=== PATIENT | female | born 1985 | race American Indian/Alaskan Native ===

== ENCOUNTER 2016-07-08 17:10 | Emergency (ER) | payer OTHER ==
[2016-07-08 20:24] VITALS: BP 131/84
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
== END 2016-07-08 21:20 | disposition home or self-care (01) ==
LOC: FB.ED 17:10
DX: F11.10 Opioid abuse, uncomplicated (principal); Z98.890 Other specified postprocedural states
CPT/HCPCS: 36415; 74176; 80053; 80305; 81001; 82977; 85025; 99284